=== PATIENT | male | born 1950 | race Two or more races ===

== ENCOUNTER 2018-10-10 08:02 | Outpatient (CLI) | payer OTHER | END 2018-10-10 08:04 | disposition home or self-care (01) | LOC: SONOGRAMA 08:02 → MAMO-SONO 08:45 | DX: N41.0 Acute prostatitis (principal); R31.0 Gross hematuria; N40.1 Benign prostatic hyperplasia with lower urinary tract symptoms ==

== ENCOUNTER → 2018-12-27 | Outpatient (CLI) | payer OTHER | END | disposition home or self-care (01) | LOC: MRI 13:43 | DX: M25.562 Pain in left knee (principal) | CPT/HCPCS: 73721 ==

== ENCOUNTER 2020-02-14 07:07 | Outpatient (CLI) | payer OTHER | END 2020-02-14 07:35 | disposition home or self-care (01) | LOC: LAB 07:07 | PROVIDERS: ATTEND Internal Medicine Gastroenterology | DX: E03.8 Other specified hypothyroidism (principal); R10.13 Epigastric pain; E78.49 Other hyperlipidemia; Z12.5 Encounter for screening for malignant neoplasm of prostate; E11.9 Type 2 diabetes mellitus without complications ==

== ENCOUNTER 2020-05-14 13:43 | Outpatient (CLI) | payer OTHER | END 2020-05-14 14:00 | disposition home or self-care (01) | LOC: LAB 13:43 | PROVIDERS: ATTEND Urology | DX: N39.0 Urinary tract infection, site not specified (principal); N40.0 Benign prostatic hyperplasia without lower urinary tract symptoms ==